=== PATIENT | female | born 1940 | race Caucasian/White ===

== ENCOUNTER 2023-05-06 02:16 | Inpatient (IN) | payer MEDICARE, SELFPAY ==
[2023-05-05 21:52] VITALS: BP 153/77
[2023-05-05 22:00] VITALS: BP 145/65
[2023-05-05 23:00] VITALS: BP 130/64
[2023-05-06] VITALS (7 sets, daily range): BP systolic 134–166; BP diastolic 77–100; BMI 21.7
[2023-05-06 00:07] LABS: % Basophils 0.3 % (0-2); % Immature Granulocytes 0.5 % (0-0.5); % Lymphocytes 2.4 % (20.5-51.1); % Monocytes 4.4 % (1.7-9.3); % Neutrophils 92.4 % (42.2-75.2); Absolute Immature Granulocytes 0.1 10^3/uL (0-0.05); Absolute Lymphocytes 0.3 10^3/uL (1.2-3.4); Absolute Monocytes 0.5 10^3/uL (0.1-0.6); Absolute Neutrophils 10.9 10^3/uL (1.4-6.5); Hematocrit 34.6 % (37.0-47.0); Hemoglobin 12.2 g/dL (12.0-16.0); Mean Corp Hgb Conc. 35.3 g/dL (33.0-37.0); Mean Corpuscular Hgb 31.8 pg (27.0-31.0); Mean Corpuscular Volume 90.1 fL (81.0-99.0); Mean Platelet Volume 9.5 fL (7.4-10.4); Nucleated Red Blood Cells % 0 %; Platelet Count 221 10^3/uL (130-400); Red Blood Cell Count 3.84 10^6/uL (4.20-5.40); Red Cell Dist. Width 12.5 % (11.5-14.5); White Blood Cell Count 11.8 10^3/uL (4.8-10.8)
--- NOTE | 2023-05-06 00:08 | ED.GENMED ---
History of Present Illness
General
Chief Complaint: Musculo-Skeletal Complaint
Source: records and family
Exam Limitations: dementia
Time Seen by Provider: 05/05/23 23:12
Travel History
Have you had any contact with someone who has COVID-19?: Unable to Answer
Do you have any symptoms of coronavirus? Fever > 100 degrees, chills, cough, shortness of breath, sore throat, loss of taste or smell, muscle aches, or headache?: Unable to Answer
History of Present Illness
History of Present Illness:
82-year-old female who complained of right hip pain. Outpatient x-ray done at [facility] showed a intertrochanteric fracture. Patient is on hospice. Family states that she had pretty progressive and quick neurocognitive decline over
the last year. Patient is unable to contribute to her own history. History and case was discussed with the patient's power of employee benefits attorney who is her niece. There was not a witnessed fall
Past History
Past History
ED Past Medical History: Cancer (Breast cancer, uterine), HTN, NIDDM, Hypothyroidism, Psychiatric (Major depression with suicidality) and Other (DVT, osteoporosis, dementia)
ED Past Surgical History: Gynecological (Hysterectomy), Tonsilectomy and Other (Hernia repair, lumpectomy, bilateral 2004, 2009)
Patient has exhibited threatening behavior?: No
PSI?: No
Social History
Tobacco: Non-smoker
Alcohol: None
Drug: None
Living: assisted living
Employment: Retired
Family History
Family History: Other (Reviewed and noncontributory)
Phy Exam
Physical Exam
Physical Exam:
CONSTITUTIONAL Patient alert. Well-appearing. Vital signs reviewed.
HEAD atraumatic, normocephalic.
EYES eyelids normal to inspection, Pupils equally round and reactive to light, Extraocular muscles intact, Conjunctiva normal, Sclera normal.
NECK normal range of motion, Trachea midline, no jugular venous distention.
RESPIRATORY CHEST No respiratory distress noted, Chest expansion equal
ABDOMEN abdomen nontender, Bowel sounds normal. No distention.
BACK normal inspection, no obvious deformities
UPPER EXTREMITY range of motion normal, Motor strength normal, no cyanosis, no edema.
LOWER EXTREMITY externally rotated and moderate proximal tenderness, no cyanosis, no edema.
NEURO awake, does not follow commands but no obvious cranial nerve deficits
SKIN skin warm, dry, and normal in color.
Course
Orders/Labs/Results
Orders:
Orders
05/05/23 23:33
CR Hip - RT w/wo Pel 2-3 Vw* Urgent
Comment:
Reason For Exam: fall
Include a pelvis x-ray?: Yes
05/05/23 23:47
Basic Metabolic Panel Urgent
Complete Blood Count/With Diff Urgent
05/06/23 00:44
0.9% Sodium Chloride 1000 ml [Nss] 1,000 ml IV BOLUS
05/06/23 01:15
Admit/Transfer Patient As Directed
Co-Sign Provider:
Level of Care: Inpatient admission
Assign to:: Medical/Surgical
Physician / Group: yariy
Diagnosis: acute Rt Hip closed IT Fx
Reason for Hospitalization: acute Rt Hip closed IT Fx
Expected length of stay greater than two midnights?: Yes
ELOS- Estimated Length of Stay in days: 3
I certify the patient meets the requirements for IP care: Yes
05/06/23 01:16
Code Status As Directed
Resuscitation Status: Do not resuscitate
Based on pt advanced directive or healthcare POA form: Yes
05/06/23 01:17
DNR Bracelet Application ONCE
Abnormal Lab Results
05/05/23
23:47
WBC 11.8 H 10^3/uL
(4.8-10.8)
RBC 3.84 L 10^6/uL
(4.20-5.40)
Hct 34.6 L %
(37.0-47.0)
MCH 31.8 H pg
(27.0-31.0)
Abs Immat Gran (auto) 0.1 H 10^3/uL
(0-0.05)
Absolute Neuts (auto) 10.9 H 10^3/uL
(1.4-6.5)
Absolute Lymphs (auto) 0.3 L 10^3/uL
(1.2-3.4)
Neutrophils % 92.4 H %
(42.2-75.2)
Lymphocytes % 2.4 L %
(20.5-51.1)
Sodium 129 L mmol/L
(135-145)
Chloride 94 L mmol/L
(98-107)
BUN 18 H mg/dl
(7-17)
Glucose 423 H mg/dl
(70-99)
05/05/23 23:47
05/05/23 23:47
Vital Signs
Initial and Last Documented VS:
Initial Vital Signs
Temp Pulse Resp BP
98.7 F 85 16 153/77
05/05/23 21:52 05/05/23 21:52 05/05/23 21:52 05/05/23 21:52
Last Documented Vital Signs
Temp Pulse Resp BP Pulse Ox
98.7 F 78 14 141/78 96
05/05/23 21:52 05/06/23 02:00 05/06/23 02:00 05/06/23 02:00 05/06/23 02:00
MDM/Problems Addressed
MDM/Problems Addressed:
Intertrochanteric hip fracture, chronic dementia
*Radiology
Radiology exam reviewed: preliminary read by ED provider (Intertrochanteric fracture)
*Pulse Oximetry
Patient hypoxic: no
*Critical Care Note
Total Time (30-74mins, 75-104mins- exclusive of procedures): 30-minute
Data Reviewed
Review of Other/Old Records Reveals: Discharge Summary (Discharge summary from February 2023 reviewed)
Source: family and longterm records
Further Testing Considered But Not Given:
Considered head CT but no signs of trauma
Patient Management
Discussion with other providers: Hospitalist and Laboratory Secretary (Orthopedics)
Escalation/DeEscalation of care consider admission/obs:
82-year-old female who is on hospice but now with a hip fracture. Power of employee benefits attorney is not sure what to do but does not want her to be in pain and unable to transfer. Plan will be for admission and consultation with orthopedics. Power of employee benefits attorney
will further discuss with orthopedics
ED Attending Note
-
Portions of this chart may have been created with voice recognition software.� Occasional wrong word or��sound alike� substitutions may have occurred due to the inherent limitations of voice recognition software.
Discharge Plan
Departure
Patient Disposition: Admit
Date of Disposition: 05/06/23
Time of Disposition: 00:08
Admit to: Med/Surg
Presentation/result/management discussed w/ accepting MD/DO: Hospitalist
Discharge Problem:
Closed hip fracture
Prescriptions:
No Action
magnesium hydroxide [Milk of Magnesia] 400 mg/5 mL Suspension
2,400 mg PO HSPRN PRN (Reason: no BM x 2 days)
bisacodyl [Dulcolax (bisacodyl)] 10 mg Suppository
10 mg UT DAILYPRN PRN (Reason: no BM x 3 days)
Fleet Enema 19-7 gram/118 mL Enema
118 ml UT DAILYPRN PRN (Reason: no BM 4 days)
levetiracetam [Keppra] 500 mg tablet
500 mg PO BID Qty: 60 0RF
acetaminophen [Tylenol] 325 mg Tablet
650 mg PO Q6H PRN (Reason: temp 100 or above/mild pain)
lorazepam 0.5 mg Tablet
0.5 mg PO Q6HPRN PRN (Reason: anxiety)
levothyroxine 125 mcg Tablet
125 mcg PO DAILY
hyoscyamine sulfate 0.125 mg Tablet, Sublingual
0.25 mg PO Q4HPRN PRN (Reason: increased secretions)
morphine concentrate 20 mg/mL Syringe
5 mg PO Q3HPRN PRN (Reason: sob/mod-severe pain 4-10)
Referrals:
Bean Sheffield MD [Family Provider] -
Interventions
Interventions:
*Risk Screen - Suicide Last Done: 05/05/23 21:52
*General Assessment Last Done: 05/05/23 21:52
*Neglect/Abuse Screening Last Done: 05/05/23 21:52
ED- Fall Risk Assessment Last Done: 05/06/23 00:18
*ED COVID-19 Vaccine History Last Done: 05/05/23 21:52
ED-Musculoskeletal Assessment Last Done: 05/05/23 21:59
[2023-05-06 00:33] LABS: Blood Urea Nitrogen 18 mg/dl (7-17); Calcium 9.4 mg/dl (8.4-10.2); Carbon Dioxide 26 mmol/L (22-30); Chloride 94 mmol/L (98-107); Glucose 423 mg/dl (70-99); Sodium 129 mmol/L (135-145); eGFR > 60.00
[2023-05-06] MEDS: NSS 1000 IV ×2 (00:49→06:43)
--- NOTE | 2023-05-06 01:09 | HPS.HSE ---
Family Physician
-
Family Physician: Bean Sheffield MD
Chief Complaint
-
fall, Rt Hip pain
History of Present Illness
82F Hospice care at [facility] HX MCI , Hypotyroid, HTN, T2DM seen at ER evalauting for fall at [place], complicated by Rt Hip pain and Leg pain. XR report Rt Femur Fx.
Medical History
Past Medical History
Past Medical History: Reports Other
Additional Past Medical History:
Cancer (Breast cancer, uterine), HTN, NIDDM, Hypothyroidism, Psychiatric (Major depression with suicidality) and Other (DVT, osteoporosis)
Past Surgical History: Reports Other
Additional Past Surgical History:
Gynecological (Hysterectomy), Tonsilectomy and Other (Hernia repair, lumpectomy, bilateral 2004, 2009)
Social History
Tobacco: Non-smoker
Alcohol: None
Drug: None
Family History
Family History: Not pertinent
Allergies / Home Medications
Allergies reflects when Allergies were last updated in [facility].
Home Medications with original date entered in [facility]
Allergy/Medication List:
Allergies
Allergy/AdvReac Type Severity Reaction Status Date / Time
ampicillin Allergy Unknown Verified 05/05/23 21:51
Home Medications
bisacodyl 10 mg rectal suppository (Dulcolax (bisacodyl)) 10 mg MT DAILYPRN PRN no BM x 3 days 03/08/23
magnesium hydroxide 400 mg/5 mL oral suspension (Milk of Magnesia) 2,400 mg PO HSPRN PRN no BM x 2 days 03/08/23
sodium phosphates 19 gram-7 gram/118 mL enema (Fleet Enema) 118 ml MT DAILYPRN PRN no BM 4 days 03/08/23
levetiracetam 500 mg tablet (Keppra) 500 mg PO BID #60 tabs 03/17/23
acetaminophen 325 mg tablet (Tylenol) 650 mg PO Q6H PRN temp 100 or above/mild pain 05/05/23
hyoscyamine sulfate 0.125 mg sublingual tablet 0.25 mg PO Q4HPRN PRN increased secretions 05/05/23
levothyroxine 125 mcg tablet 125 mcg PO DAILY 05/05/23
lorazepam 0.5 mg tablet 0.5 mg PO Q6HPRN PRN anxiety 05/05/23
morphine concentrate 20 mg/mL oral syringe (FOR ORAL USE ONLY) 5 mg PO Q3HPRN PRN sob/mod-severe pain 4-10 05/05/23
Review of Systems
-
Constitutional: Reports No Symptoms
EENT: Reports No Symptoms
Respiratory: Reports No Symptoms
Cardiac: Reports No Symptoms
Abdomen/GI: Reports No Symptoms
: Reports No Symptoms
Musculoskeletal: Reports See HPI
Skin: Reports No Symptoms
Neurological: Reports No Symptoms
Endocrine: Reports No Symptoms
Hematologic/Lymphatic: Reports No Symptoms
Psych: Reports No Symptoms
Physical Exam
Vital Signs
Vital Signs
Temp Pulse Resp BP Pulse Ox
98.7 F 86 16 144/79 96
05/05/23 21:52 05/06/23 00:17 05/05/23 21:52 05/06/23 00:17 05/06/23 00:17
Physical Exam
General: Other (see below )
Laboratory Results
-
05/05/23 23:47
05/05/23 23:47
Laboratory Results
Total Bilirubin Cancelled 05/05/23 23:47
AST Cancelled 05/05/23 23:47
ALT Cancelled 05/05/23 23:47
Alkaline Phosphatase Cancelled 05/05/23 23:47
Data Reviewed
-
Diagnostic Radiology: Report Reviewed by me
Lab Data: Labs Reviewed by me
Old Records: Reviewed
Impression/Plan
-
Reviewed VS: unremarkable VSS
PE
General: Comfortable and Conversant
HEENT: atraumatic head
Respiratory: Clear
Cardiac: S1/S2 and Regular Rhythm
Abdomen: soft Not distended
: POS F Cath
Musculoskeletal:Rt hip deformity
Skin: Warm
Neuro: Nonfocal
Data
WCC 11.8
Na 129 - corrected Na is 134 for BG 423
Cl 94
Nl Cr & Nl eGFR
Rt Hip XR: R hip IT Fx
Last hospitalist admission: 03/15/23 - 03/17/23
DC Dxs:
1. New onset seizure.
2. Advanced failure to thrive
3. Hypothyroid.
4. T2DM2
5. Chronic infirmity of advanced years and underlying medical issues.
6. Neurocognitive impairment.
7. History of breast cancer in the past.
ASSESSMENT & PLAN
Acute Rt Hip closed IT Fx
HX Mechanical fall - recent admission( 02/27- 03/01/23)
HX Severe back pain
HX Ambulatory dysfunction
- NPO and IVF
- Fx set protocol orders
- Ortho consulted
Hyperglycemia
NIDDM
last A1C 9.4
- held metformin
- add ISS low
Pseudohyponatremia due to hyperglycemia
HX Sz
- on [employer] AD[employer] Keppra
Essential hypertension
- Held [employer] lisinopril due to NPO
- add IV Hydralazine PRN
Hypothyroidism
- cont. levothyroxine
Mild cognitive deficit
Possible mild neurocognitive disorder per Psych evaluation on last admission
DVT Px: SCD
Code: DNR on last admission .
IP MS
[2023-05-06] MEDS: DILAUDID 0.25 MG IV ×2 (03:20→12:42)
[2023-05-06] MEDS: SYNTHROID 125 MCG PO (05:58)
[2023-05-06 06:03] LABS: Glucose - Point of Care 331 mg/dl (70-99)
--- NOTE | 2023-05-06 06:37 | PTCARENOTE ---
0600 sugar taken, result was 331. Mandi JOHNSON notified. Orders for sliding scale and IV fluids placed.
[2023-05-06] MEDS: NOVOLOG FLEXPEN-LOW RESISTANCE 4 UNITS SC (08:09)
[2023-05-06] MEDS: KEPPRA 500 MG PO ×2 (08:10→18:32)
--- NOTE | 2023-05-06 10:24 | CON.ORTHO ---
Addendum entered and electronically signed by Cristino Whalen MD 05/06/23 10:52:
Patient seen and evaluated by me. Operative treatment has been recommended for palliative care of her right intertrochanteric fracture. Patient is on hospice, and niece/power of bottom hoop driver does not wish to have patient undergo operative treatment.
We respect her wishes, if additional discussion regarding treatment options is requested, please reach out and contact me or a member of my team.
Original Note:
Consultation
-
Date/Time Consultation Requested: May 13
Date/Time Consultation Performed: May 13
Requesting Provider: Michael
Performing Provider: Nell Whalen
Reason for Consultation: Right hip Fx
Consultation - Orthopedics
History
Dictation#[id number]
Asked to see this 82 y/o white female with PMH Breast and Uterine Ca, HTN, NIDDM, Hypothyroidism, major depression with suicidality, DVT, dementia, who I'm told is on hospice. Outpatient x-ray done at [facility] showed a RIGHT
intertrochanteric femur fracture, but fall unwitnessed. Per patient's POA and niece, Dariela, patient has stated numerous times over the last few years that she would like to and be with her late , Wilmer. She also states that she has
had a pretty progressive and quick neurocognitive decline over the last year.� Patient is unable to contribute to her own history.� Given the nature of her right hip fracture we were requested in consult
Allergies / Home Medications
Allergy/AdvReac Type Severity Reaction Status Date / Time
ampicillin Allergy Unknown Verified 05/05/23 21:51
Medication Instructions Recorded
bisacodyl 10 mg rectal suppository 10 mg RI DAILYPRN PRN no BM x 3 03/08/23
(Dulcolax (bisacodyl)) days
magnesium hydroxide 400 mg/5 mL 2,400 mg PO HSPRN PRN no BM x 2 03/08/23
oral suspension (Milk of Magnesia) days
sodium phosphates 19 gram-7 118 ml RI DAILYPRN PRN no BM 4 days 03/08/23
gram/118 mL enema (Fleet Enema)
levetiracetam 500 mg tablet 500 mg PO BID #60 tabs 03/17/23
(Keppra)
acetaminophen 325 mg tablet 650 mg PO Q6H PRN temp 100 or 05/05/23
(Tylenol) above/mild pain
hyoscyamine sulfate 0.125 mg 0.25 mg PO Q4HPRN PRN increased 05/05/23
sublingual tablet secretions
levothyroxine 125 mcg tablet 125 mcg PO DAILY 05/05/23
lorazepam 0.5 mg tablet 0.5 mg PO Q6HPRN PRN anxiety 05/05/23
morphine concentrate 20 mg/mL oral 5 mg PO Q3HPRN PRN sob/mod-severe 05/05/23
syringe (FOR ORAL USE ONLY) pain 4-10
Vital Signs / Lab Results
Temp Pulse Resp BP Pulse Ox
97.6 F 85 18 134/80 100
05/06/23 07:30 05/06/23 07:30 05/06/23 07:30 05/06/23 07:30 05/06/23 07:30
05/05/23 23:47
05/05/23 23:47
Assessment / Plan
PE: Bedrest. AAO x 1. Really no participation in the H&P. Afeb. Right hip skin intact. RLE slightly short. To palpation of the right hip she grimaces. Deferred ROM. Calf soft, nontender. DNVI RLE
Xrays: 4 part IT Fracture of the right proximal femur
Impression: MARY
Plan: At length discussion with the patient's niece and POA, Dariela, this AM yields her understanding to the nature of her right hip fracture. I also inquired numerous times of the patient if she desired surgical correction of her hip fracture,
which she replied 'NO,' Dariela defers to the patient's desire. Obviously given the patient's overall clinical picture and the fact she is on hospice, surgical fixation would be purely for palliative reasons. I also discussed the case with attending
Hospitalist, Dr. Miles Minor. Based on the patient's desire for nonsurgical treatment we will request continued treatment per the primary team. They understand the pain associated with nonsurgical treatment of this fracture will occur with all
movement, transfers, etc. Will continue with Hospice care and pain management. If, by chance, there is a change of heart, please make sure to reach out to our Orthopaedic service to arrange a time for surgical correction.
--- NOTE | 2023-05-06 11:25 | PTCARENOTE ---
Spoke with Radha @ [facility]- Pt is mainly wheelchair at baseline. Stand/pivot to chair. Was found on floor from unwitnessed fall. Had shital at [facility].
--- NOTE | 2023-05-06 11:39 | CM ---
Addendum entered by Daiana Morales 05/06/23 11:58:
Dariela DARNELL, updated with transportation time.
Addendum entered by Daiana Morales 05/06/23 11:48:
[facility]
Report: [phone]
Original Note:
CM spoke with patients DARNELL and minerva Lyle, discussed patient plan to return to [place] with [facility] as patient is declining operative treatment at this time. IMM reviewed over the phone, will email to [email or web address]. CM spoke with
Eliane at [facility], per Eliane, nurses will make [facility] aware that patient is for return today. CM spoke with nurse Quiroga at [facility], relayed 8:00 p.m. ambulance transport. CM will continue to follow for discharge planning needs.
Plan; return to [place] with [facility], 8:00 p.m. ambulance time.
--- NOTE | 2023-05-06 11:56 | W.PN.UPDATE ---
Addendum entered and electronically signed by Miles Minor MD 05/06/23 12:09:
Total time spent on d/c = 33 min. This included today's physical exam, progress note, review of laboratory and diagnostic data, preparation of discharge documents and prescriptions, and discussions about the pt's hospital course and discharge plan
with the patient and other medical collector involved in the patient's care.
Original Note:
Update Note
Progress Note Update
Patient seen and examined after post midnight admission. Patient currently denies any pain.
130/80, 85, 18, 97.6 �F, 100% RA
NAD, awake and alert
RRR, normal S1/S2
CTAB
CN2-12 intact
Patient presented with a fall resulting in right hip fracture. Patient was seen in consultation by orthopedics. Patient is on hospice and the niece/power of employee benefits attorney does not want the patient to have surgery. She is being discharged back to her
retirement on hospice at this time.
[2023-05-06 12:04] LABS: Glucose - Point of Care 272 mg/dl (70-99)
--- NOTE | 2023-05-06 12:05 | W.DCSUMMARY ---
Discharge Summary
Discharge Data
Date of Admission: 05/06/23
Date of Discharge: 05/06/23
-
Pending Results: No
Hospital Course
Primary diagnoses:
Right hip intertrochanteric fracture
Secondary diagnoses:
Ambulatory dysfunction
Type 2 diabetes mellitus
Pseudohyponatremia
History of seizure disorder
Essential hypertension
Hypothyroidism
Mild cognitive impairment (possible mild neurocognitive disorder)
Consultants:
Orthopedics
Imaging:
R hip Xray: Severely comminuted mildly displaced proximal right femur intertrochanteric fracture with varus angulation. No intra-articular extension or dislocation.
Hospital course: 82-year-old female who was admitted earlier today with a fall resulting in right hip fracture.� Patient was seen in consultation by orthopedics.� Patient is on hospice and the niece/power of stage electrician helper does not want the patient to
have surgery.� She is being discharged back to her [facility] on hospice at this time.
Discharge Plan
-
Patient Disposition: Usp/SNF
Discharge Diagnosis/Procedures: Right hip fracture
Condition: Fair
Diet: Other diet
Additional Diets: As prior to admission
Activity: Other activity
Additional Activity: Bedrest
Driving Restrictions: No driving
Other Services: Hospice
Referrals:
Bean Sheffield MD [Family Provider] - in less than 1 week
Prescriptions:
Continued
magnesium hydroxide [Milk of Magnesia] 400 mg/5 mL Suspension
2,400 mg PO HSPRN PRN (Reason: no BM x 2 days)
bisacodyl [Dulcolax (bisacodyl)] 10 mg Suppository
10 mg NV DAILYPRN PRN (Reason: no BM x 3 days)
Fleet Enema 19-7 gram/118 mL Enema
118 ml NV DAILYPRN PRN (Reason: no BM 4 days)
levetiracetam [Keppra] 500 mg tablet
500 mg PO BID Qty: 60 0RF
acetaminophen [Tylenol] 325 mg Tablet
650 mg PO Q6H PRN (Reason: temp 100 or above/mild pain)
lorazepam 0.5 mg Tablet
0.5 mg PO Q6HPRN PRN (Reason: anxiety)
levothyroxine 125 mcg Tablet
125 mcg PO DAILY
hyoscyamine sulfate 0.125 mg Tablet, Sublingual
0.25 mg PO Q4HPRN PRN (Reason: increased secretions)
morphine concentrate 20 mg/mL Syringe
5 mg PO Q3HPRN PRN (Reason: sob/mod-severe pain 4-10)
Discharge Orders:
Discharge Patient (As Directed); Ordered 05/06/23
Ordered By: Miles Minor
[2023-05-06] MEDS: NOVOLOG FLEXPEN-LOW RESISTANCE 2 UNITS SC ×2 (12:43→17:13)
[2023-05-06 17:06] LABS: Glucose - Point of Care 226 mg/dl (70-99)
[2023-05-06] MEDS: NSS IV (18:22)
[2023-05-06] MEDS: COLACE 100 MG PO (18:33)
[2023-05-06] MEDS: SENOKOT 17.1999999999999993 MG PO (18:33)
--- NOTE | 2023-05-06 20:40 | PTCARENOTE ---
acute care called and stated that they would no be arriving until 2330 to [facility] pickler pt. [facility] was called and made aware. they state they are able to receive pt at that time.
[2023-05-06] MEDS: ROXANOL ORAL CONCENTRATE 5 MG PO (21:26)
== END 2023-05-06 23:04 | DRG 536 ==
LOC: 4 WEST ACU 02:16
PROVIDERS: ADMITTING PHYSICIAN Internal Medicine; ATTENDING PHYSICIAN Internal Medicine; CONSULT PHYSICIAN Specialist; EMERGENCY PHYSICIAN Emergency Medicine; FAMILY PHYSICIAN Family Medicine; OTHER PHYSICIAN Physician Assistant Surgical
DX: S72.141A Displaced intertrochanteric fracture of right femur, initial encounter for closed fracture (principal); E11.65 Type 2 diabetes mellitus with hyperglycemia; I10 Essential (primary) hypertension; E03.9 Hypothyroidism, unspecified; Z66 Do not resuscitate; Z51.5 Encounter for palliative care; R26.2 Difficulty in walking, not elsewhere classified
CPT/HCPCS: 73502; 80048; 80053; 82962; 85025; 86850; 86900; 86901; 96360; 99291